=== PATIENT | male | born 1955 | race Caucasian/White ===

== ENCOUNTER 2023-06-18 10:23 | Inpatient (IN) | payer OTHER, MEDICARE ==
[2023-06-18] MEDS ORDERED: Sodium Chloride 0.9% 10 ML Syringe FLUSH PRN (10:32)
[2023-06-18 11:02] LABS: EOSINOPHILS ABSOLUTE AUTO 0.01 10^3/uL (0.10-0.30); EOSINOPHILS PERCENT AUTO 0.2 % (1.0-3.0); HEMATOCRIT 45.5 % (40.0-52.0); HEMOGLOBIN 14.9 g/dL (13.0-17.0); IMMATURE GRAN ABSOLUTE AUTO 0.02 10^3/uL (0.00-0.50); IMMATURE GRAN PERCENT AUTO 0.4 % (0.0-5.0); LYMPHOCYTES ABSOLUTE AUTO 0.29 10^3/uL (1.00-4.00); LYMPHOCYTES PERCENT AUTO 5.3 % (20.0-40.0); MEAN CORPUSCULAR HEMOGLOBIN 31.5 pg (27.0-31.0); MEAN CORPUSCULAR HGB CONC 32.7 g/dL (32.0-36.0); MEAN CORPUSCULAR VOLUME 96.2 fL (82.0-92.0); MEAN PLATELET VOLUME 8.8 fL (7.4-10.4); MONOCYTES ABSOLUTE AUTO 0.38 10^3/uL (0.10-0.80); MONOCYTES PERCENT AUTO 6.9 % (2.0-8.0); NEUTROPHILS PERCENT AUTO 87.2 % (50.0-70.0); PLATELET COUNT,PLT 141 10^3/uL (150-400); RED BLOOD CELL COUNT 4.73 10^6/uL (4.50-6.00); RED CELL DISTRIBUTION WIDTH 12.1 % (11.5-14.5)
[2023-06-18] MEDS: Sodium Chloride 0.9% 1,000 ML IV ONE ×2 (11:02→13:25)
[2023-06-18 11:18] LABS: ALBUMIN 3.39 g/dL (3.40-5.00); ANION GAP 18.7 mmol/L (5-15); BILIRUBIN TOTAL 0.6 mg/dL (0.2-1.0); CREATININE 0.99 mg/dL (0.51-1.17); EST CRCL DRUG DOSING (CG) 64.44 mL/min; POTASSIUM,K 3.7 mmol/L (3.5-5.1); PROTEIN TOTAL,TP 7.7 g/dL (6.4-8.2)
[2023-06-18 11:21] LABS: LACTIC ACID 3.2 mmol/L (0.4-2.0)
[2023-06-18] MEDS: Magnesium Sulfate/Water 2 GM in Premix Bag 1 BAG IV ONE ×2 (12:19→13:52)
[2023-06-18] MEDS: Calcium Carbonate 500 MG Tab.Chew PO ONE (12:46)
[2023-06-18 13:00] LABS: APPEARANCE,URINE SLIGHTLY CLOUDY (CLEAR); BILIRUBIN,URINE SMALL (NEGATIVE); COLOR,URINE DARK YELLOW (YELLOW); GLUCOSE,URINE 500 mg/dL (NEGATIVE); KETONES,URINE 15 mg/dL (NEGATIVE); LEUKOCYTE ESTERASE,URINE NEGATIVE (NEGATIVE); NITRITE,URINE NEGATIVE (NEGATIVE); PH,URINE 5.5 (5.0-9.0); PROTEIN,URINE 30 mg/dL (NEGATIVE); UROBILINOGEN,URINE 0.2 E.U./dL (0.2-1.0)
[2023-06-18 13:02] LABS: BACTERIA,URINE OCCASIONAL /HPF (NONE TO FEW); EPITHELIAL CELLS,URINE OCCASIONAL /LPF; GRANULAR CASTS,URINE RARE; WBC,URINE 0-5 /HPF (0-5)
[2023-06-18 13:03] LABS: OCCULT BLOOD,URINE TRACE-INTACT (NEGATIVE)
[2023-06-18] MEDS: cefTRIAXone 2 GM Vial IVPUSH ONE (14:54)
[2023-06-18] MEDS: Azithromycin 500 MG in Sodium Chloride 0.9% 250 ML IV ONE (15:00)
[2023-06-18] MEDS: Azithromycin 1,000 MG in Sodium Chloride 0.9% 500 ML IV ONE (15:25)
[2023-06-18] MEDS ORDERED: Glucagon,Human Recombinant 1 MG Vial IM PRN ×2 (17:41→18:04)
[2023-06-18] MEDS ORDERED: 50% Dextrose in Water 50 ML Syringe IVPUSH PRN ×2 (17:41→18:04)
[2023-06-18] MEDS ORDERED: Ondansetron 4 MG/2 ML SDV IV PRN (17:41)
[2023-06-18] MEDS ORDERED: Magnesium Hydroxide 400 MG/5 ML Susp 30 ML Cup PO PRN (17:53)
[2023-06-18] MEDS: Insulin Lispro 100 Unit/ML 3 ML KwikPen SUBCUT ONE ×2 (18:15→21:24)
[2023-06-18] MEDS: Insulin Lispro 100 Unit/ML 3 ML KwikPen SUBCUT SCH (18:16)
[2023-06-18] MEDS: Pantoprazole 40 MG Vial IVPUSH ONE (18:44)
[2023-06-18] MEDS: Sodium Chloride 0.9% 500 ML IV ONE ×3 (18:46→18:49)
[2023-06-18] MEDS: Sodium Chloride 0.9% 1,000 ML IV SCH (19:30)
[2023-06-18] MEDS: ClonazePAM 0.5 MG Tab PO SCH (20:28)
[2023-06-18] MEDS: Melatonin 3 MG Tab PO SCH (20:33)
[2023-06-18] MEDS: Tamsulosin 0.4 MG Cap.ER #OWN MED# PO SCH (20:34)
[2023-06-18] MEDS: OLANZAPINE 20 MG PO SCH (20:35)
[2023-06-18] MEDS: METOPROLOL TARTRATE 25 MG PO SCH (20:37)
[2023-06-18] MEDS: VALPROIC ACID 250 MG/5 ML PO SCH (20:39)
[2023-06-18] MEDS: LITHIUM CARBONATE 450 MG PO SCH (20:58)
[2023-06-18] MEDS ORDERED: Metoprolol Tartrate 25 MG Tab PO SCH (21:00)
[2023-06-18] MEDS: Menthol Lozenge PO PRN (21:53)
[2023-06-19] MEDS: OMEPRAZOLE 20 MG PO SCH (07:26)
[2023-06-19 07:56] LABS: HEMATOCRIT 44.3 % (40.0-52.0); HEMOGLOBIN 14.4 g/dL (13.0-17.0); MEAN CORPUSCULAR HEMOGLOBIN 31.6 pg (27.0-31.0); MEAN CORPUSCULAR HGB CONC 32.5 g/dL (32.0-36.0); MEAN CORPUSCULAR VOLUME 97.4 fL (82.0-92.0); MEAN PLATELET VOLUME 8.8 fL (7.4-10.4); PLATELET COUNT,PLT 105 10^3/uL (150-400); RED BLOOD CELL COUNT 4.55 10^6/uL (4.50-6.00); RED CELL DISTRIBUTION WIDTH 12.4 % (11.5-14.5); WHITE BLOOD CELL COUNT,WBC 5.21 10^3/uL (5.00-10.00)
[2023-06-19 08:11] LABS: ALBUMIN 2.93 g/dL (3.40-5.00); BILIRUBIN TOTAL 0.3 mg/dL (0.2-1.0); CALCIUM 7.9 mg/dL (8.7-10.3); CARBON DIOXIDE,CO2 23.4 mmol/L (21.0-32.0); CREATININE 0.81 mg/dL (0.51-1.17); EST CRCL DRUG DOSING (CG) 78.77 mL/min; PROTEIN TOTAL,TP 6.9 g/dL (6.4-8.2)
[2023-06-19] MEDS: Insulin Glargine,Hum.Rec.Anlog 100 UNIT/ML 3 ML Pen SUBCUT SCH (08:18)
[2023-06-19 08:19] LABS: POTASSIUM,K 2.4 mmol/L (3.5-5.1)
[2023-06-19] MEDS: VALPROIC ACID 250 MG/5 ML PO SCH (08:19)
[2023-06-19] MEDS: Loratadine 10 MG Tab PO SCH (08:19)
[2023-06-19] MEDS: Aspirin 81 MG Tab.EC PO SCH (08:19)
[2023-06-19] MEDS: LOSARTAN 50 MG PO SCH (08:20)
[2023-06-19] MEDS: OLANZAPINE 5 MG PO SCH (08:21)
[2023-06-19] MEDS ORDERED: Losartan 50 MG Tab PO SCH (09:00)
[2023-06-19] MEDS: Potassium Chloride 20 MEQ in Premix Bag 1 BAG IV ONE ×3 (10:33→17:32)
[2023-06-19] MEDS: Acetaminophen 325 MG Tab PO PRN (11:00)
[2023-06-19] MEDS: Potassium Chloride 20 MEQ Tab.ER PO ONE ×3 (11:55→23:40)
[2023-06-19] MEDS: Loperamide 2 MG Cap PO PRN (15:59)
[2023-06-19 16:26] LABS: ALBUMIN 2.73 g/dL (3.40-5.00); ANION GAP 17.1 mmol/L (5-15); CALCIUM 7.7 mg/dL (8.7-10.3); CARBON DIOXIDE,CO2 19.2 mmol/L (21.0-32.0); CREATININE 0.82 mg/dL (0.51-1.17); EST CRCL DRUG DOSING (CG) 77.8 mL/min; PHOSPHORUS 2.3 mg/dL (2.6-4.7)
[2023-06-19 16:36] LABS: POTASSIUM,K 2.3 mmol/L (3.5-5.1)
[2023-06-19] MEDS: Magnesium Oxide 500 MG Tab PO SCH (17:34)
[2023-06-19] MEDS: NS with KCl 40mEq 1,000 ML IV SCH (19:49)
[2023-06-19] MEDS: OLANZapine 5 MG Tab PO SCH (20:45)
[2023-06-19] MEDS: Tamsulosin 0.4 MG Cap.ER PO SCH (20:49)
[2023-06-19] MEDS: Metoprolol Tartrate 25 MG Tab PO SCH (20:49)
[2023-06-19] MEDS: Lidocaine 5% 700 MG Patch TOP SCH (20:52)
[2023-06-20] MEDS: Omeprazole 20 MG Cap.CR PO SCH (08:15)
[2023-06-20] MEDS: Enoxaparin 40 MG/0.4 ML Syringe SUBCUT SCH (08:15)
[2023-06-20] MEDS: OLANZapine 5 MG Tab PO SCH (08:15)
[2023-06-20] MEDS: LIDOCAINE PATCH TRDERM SCH (08:21)
[2023-06-20 08:56] LABS: ALBUMIN 2.72 g/dL (3.40-5.00); BILIRUBIN TOTAL 0.3 mg/dL (0.2-1.0); CARBON DIOXIDE,CO2 20.4 mmol/L (21.0-32.0); CREATININE 0.76 mg/dL (0.51-1.17); EST CRCL DRUG DOSING (CG) 83.95 mL/min; MAGNESIUM 2.1 mg/dL (1.8-2.4); POTASSIUM,K 3.4 mmol/L (3.5-5.1); PROTEIN TOTAL,TP 6.6 g/dL (6.4-8.2)
[2023-06-20 09:12] LABS: HEMATOCRIT 40.3 % (40.0-52.0); HEMOGLOBIN 13.3 g/dL (13.0-17.0); MEAN CORPUSCULAR HEMOGLOBIN 32.4 pg (27.0-31.0); MEAN CORPUSCULAR VOLUME 98.3 fL (82.0-92.0); MEAN PLATELET VOLUME 8.8 fL (7.4-10.4); PLATELET COUNT,PLT 112 10^3/uL (150-400); RED CELL DISTRIBUTION WIDTH 12.7 % (11.5-14.5); WHITE BLOOD CELL COUNT,WBC 5.76 10^3/uL (5.00-10.00)
[2023-06-20] MEDS: VALPROIC ACID 250 MG/5 ML PO ONE (10:15)
[2023-06-20] MEDS: Potassium Chloride 20 MEQ Tab.ER PO ONE (12:09)
[2023-06-20 14:52] LABS: CALCIUM 8.3 mg/dL (8.7-10.3)
[2023-06-20] MEDS ORDERED: VALPROIC ACID 250 MG/5 ML PO SCH (17:00)
== END 2023-06-20 13:55 | DRG 641 ==
LOC: KA.ED 10:23 → KA.MS 16:58 → OBSVTOIN 06-19 18:15
PROVIDERS: ADMIT Internal Medicine; ATTEND Internal Medicine
DX: E86.0 Dehydration (principal); F31.62 Bipolar disorder, current episode mixed, moderate; E87.6 Hypokalemia; R74.01 Elevation of levels of liver transaminase levels; R74.02 Elevation of levels of lactic acid dehydrogenase [LDH]; E11.65 Type 2 diabetes mellitus with hyperglycemia; N40.1 Benign prostatic hyperplasia with lower urinary tract symptoms; K59.09 Other constipation; K21.9 Gastro-esophageal reflux disease without esophagitis; F41.9 Anxiety disorder, unspecified; I10 Essential (primary) hypertension; E83.42 Hypomagnesemia; R33.8 Other retention of urine; R74.8 Abnormal levels of other serum enzymes; R79.89 Other specified abnormal findings of blood chemistry; R44.1 Visual hallucinations; Z88.5 Allergy status to narcotic agent; Z88.8 Allergy status to other drugs, medicaments and biological substances; Z79.4 Long term (current) use of insulin; Z79.82 Long term (current) use of aspirin; Z79.84 Long term (current) use of oral hypoglycemic drugs; Z79.899 Other long term (current) drug therapy
CPT/HCPCS: 36415 ×2; 51798; 71045; 80053 ×2; 80069; 81001; 82947 ×7; 83605 ×4; 83735; 85025; 85027; 87040 ×2; 87324; 87449; A9270 ×16; C9113; J0456; J0696; J1815; J3475 ×2; J3480 ×3; J7030 ×4; J7040; J7050; Q3014; 51702; 96361; 96365; 96366; 96367; 96375; 99223-GT; 99238-GT; 99284; 99285-25; J1650

== ENCOUNTER 2023-06-28 00:37 | Inpatient (IN) | payer OTHER, MEDICARE ==
[2023-06-28] MEDS ORDERED: Sodium Chloride 0.9% 10 ML Syringe FLUSH PRN (00:55)
[2023-06-28] MEDS: Sodium Chloride 0.9% 1,000 ML IV ONE (00:57)
[2023-06-28] MEDS: Sodium Chloride 0.9% 1,000 ML ONE (00:57)
[2023-06-28] MEDS: Insulin Regular, Human 100 Units/ML 10 ML Vial SUBCUT ONE (01:31)
[2023-06-28 01:37] LABS: BASOPHILS ABSOLUTE AUTO 0.02 10^3/uL (0.00-0.10); BASOPHILS PERCENT AUTO 0.3 % (0.0-1.0); EOSINOPHILS ABSOLUTE AUTO 0.23 10^3/uL (0.10-0.30); EOSINOPHILS PERCENT AUTO 3.3 % (1.0-3.0); HEMATOCRIT 34.9 % (40.0-52.0); HEMOGLOBIN 11.8 g/dL (13.0-17.0); IMMATURE GRAN ABSOLUTE AUTO 0.27 10^3/uL (0.00-0.50); IMMATURE GRAN PERCENT AUTO 3.9 % (0.0-5.0); LYMPHOCYTES ABSOLUTE AUTO 1.77 10^3/uL (1.00-4.00); LYMPHOCYTES PERCENT AUTO 25.5 % (20.0-40.0); MEAN CORPUSCULAR HEMOGLOBIN 32.6 pg (27.0-31.0); MEAN CORPUSCULAR HGB CONC 33.8 g/dL (32.0-36.0); MEAN CORPUSCULAR VOLUME 96.4 fL (82.0-92.0); MONOCYTES ABSOLUTE AUTO 0.75 10^3/uL (0.10-0.80); MONOCYTES PERCENT AUTO 10.8 % (2.0-8.0); NEUTROPHILS PERCENT AUTO 56.2 % (50.0-70.0); PLATELET COUNT,PLT 223 10^3/uL (150-400); RED BLOOD CELL COUNT 3.62 10^6/uL (4.50-6.00); RED CELL DISTRIBUTION WIDTH 12.9 % (11.5-14.5); WHITE BLOOD CELL COUNT,WBC 6.94 10^3/uL (5.00-10.00)
[2023-06-28 01:45] LABS: APPEARANCE,URINE CLEAR (CLEAR); BILIRUBIN,URINE NEGATIVE (NEGATIVE); COLOR,URINE YELLOW (YELLOW); GLUCOSE,URINE >=1000 mg/dL (NEGATIVE); KETONES,URINE NEGATIVE (NEGATIVE); LEUKOCYTE ESTERASE,URINE NEGATIVE (NEGATIVE); NITRITE,URINE NEGATIVE (NEGATIVE); OCCULT BLOOD,URINE NEGATIVE (NEGATIVE); PROTEIN,URINE NEGATIVE (NEGATIVE); UROBILINOGEN,URINE 0.2 E.U./dL (0.2-1.0)
[2023-06-28 01:51] LABS: ALBUMIN 2.71 g/dL (3.40-5.00); ANION GAP 14.1 mmol/L (5-15); BILIRUBIN TOTAL 0.5 mg/dL (0.2-1.0); CALCIUM 8.8 mg/dL (8.7-10.3); CARBON DIOXIDE,CO2 27.8 mmol/L (21.0-32.0); CREATININE 0.78 mg/dL (0.51-1.17); EST CRCL DRUG DOSING (CG) 112.24 mL/min; POTASSIUM,K 4.9 mmol/L (3.5-5.1); PROTEIN TOTAL,TP 6.8 g/dL (6.4-8.2)
[2023-06-28 01:51] LABS: BACTERIA,URINE RARE /HPF (NONE TO FEW); EPITHELIAL CELLS,URINE RARE /LPF; RBC,URINE 0-5 /HPF (0-5); WBC,URINE 0-5 /HPF (0-5)
[2023-06-28] MEDS ORDERED: Ondansetron 4 MG/2 ML SDV IV PRN (03:22)
[2023-06-28] MEDS ORDERED: Non-Formulary Medication 1 Each (Dextran 70/Hypromellose [Artificial Tears] 1 EACH Dropere OP PRN (03:33)
[2023-06-28] MEDS ORDERED: Magnesium Hydroxide 400 MG/5 ML Susp 30 ML Cup PO PRN (03:33)
[2023-06-28] MEDS: Sodium Chloride 0.9% 1,000 ML IV SCH (04:06)
[2023-06-28] MEDS: Insulin Regular in 0.9 % NACL 100 ML IV SCH (04:07)
[2023-06-28 07:00] LABS: HEMATOCRIT 34.3 % (40.0-52.0); HEMOGLOBIN 11.5 g/dL (13.0-17.0); MEAN CORPUSCULAR HEMOGLOBIN 31.8 pg (27.0-31.0); MEAN CORPUSCULAR HGB CONC 33.5 g/dL (32.0-36.0); MEAN CORPUSCULAR VOLUME 94.8 fL (82.0-92.0); MEAN PLATELET VOLUME 8.3 fL (7.4-10.4); PLATELET COUNT,PLT 175 10^3/uL (150-400); RED BLOOD CELL COUNT 3.62 10^6/uL (4.50-6.00); RED CELL DISTRIBUTION WIDTH 12.9 % (11.5-14.5); WHITE BLOOD CELL COUNT,WBC 6.14 10^3/uL (5.00-10.00)
[2023-06-28 07:16] LABS: CALCIUM 8.4 mg/dL (8.7-10.3); CARBON DIOXIDE,CO2 29.9 mmol/L (21.0-32.0); CREATININE 0.61 mg/dL (0.51-1.17); EST CRCL DRUG DOSING (CG) 104.59 mL/min; MAGNESIUM 1.5 mg/dL (1.8-2.4); POTASSIUM,K 3.9 mmol/L (3.5-5.1)
[2023-06-28] MEDS ORDERED: Omeprazole 20 MG Cap.CR PO SCH (07:30)
[2023-06-28] MEDS ORDERED: Glucagon,Human Recombinant 1 MG Vial IM PRN (07:36)
[2023-06-28] MEDS ORDERED: 50% Dextrose in Water 50 ML Syringe IVPUSH PRN (07:36)
[2023-06-28] MEDS: Insulin Lispro 100 Unit/ML 3 ML KwikPen SUBCUT SCH ×2 (08:02→21:16)
[2023-06-28] MEDS: Pantoprazole 40 MG Tab.CR PO SCH (08:12)
[2023-06-28] MEDS: Docusate Sodium 100 MG Cap PO SCH (08:12)
[2023-06-28] MEDS: Loratadine 10 MG Tab PO SCH (08:12)
[2023-06-28] MEDS: glipiZIDE 5 MG Tab PO SCH (08:12)
[2023-06-28] MEDS: Multivitamins with Minerals/Iron/Folic Acid/Lycopene Tab PO SCH (08:13)
[2023-06-28] MEDS: Magnesium Oxide 500 MG Tab PO SCH (08:13)
[2023-06-28] MEDS: Cholecalciferol (Vitamin D3) 25 MCG Tab PO SCH (08:13)
[2023-06-28] MEDS: Thiamine 100 MG Tab PO SCH (08:13)
[2023-06-28] MEDS: Metoprolol Tartrate 25 MG Tab PO SCH (08:14)
[2023-06-28] MEDS: Aspirin 81 MG Tab.EC PO SCH (08:15)
[2023-06-28] MEDS: Cefdinir 300 MG Cap PO SCH (08:15)
[2023-06-28] MEDS: Losartan 50 MG Tab PO SCH (08:15)
[2023-06-28] MEDS: Folic Acid 1 MG Tab PO SCH (08:15)
[2023-06-28] MEDS: Enoxaparin 40 MG/0.4 ML Syringe SUBCUT SCH (08:23)
[2023-06-28] MEDS ORDERED: Non-Formulary Medication 1 Each (Magnesium Oxide [Magnesium Oxide] 400 MG Tablet) PO SCH (09:00)
[2023-06-28] MEDS: Insulin Glargine,Hum.Rec.Anlog 100 UNIT/ML 3 ML Pen SUBCUT SCH (09:50)
[2023-06-28 10:16] LABS: APPEARANCE,URINE CLEAR (CLEAR); BILIRUBIN,URINE NEGATIVE (NEGATIVE); COLOR,URINE YELLOW (YELLOW); GLUCOSE,URINE 500 mg/dL (NEGATIVE); KETONES,URINE NEGATIVE (NEGATIVE); LEUKOCYTE ESTERASE,URINE NEGATIVE (NEGATIVE); NITRITE,URINE NEGATIVE (NEGATIVE); OCCULT BLOOD,URINE NEGATIVE (NEGATIVE); PROTEIN,URINE NEGATIVE (NEGATIVE); UROBILINOGEN,URINE 0.2 E.U./dL (0.2-1.0)
[2023-06-28] MEDS: Acetaminophen 325 MG Tab PO PRN (11:56)
[2023-06-28 12:03] LABS: HEMOGLOBIN A1C 8.8 % (4.3-5.7)
[2023-06-28 12:11] LABS: ANION GAP 14.9 mmol/L (5-15); CALCIUM 8.7 mg/dL (8.7-10.3); CREATININE 0.63 mg/dL (0.51-1.17); EST CRCL DRUG DOSING (CG) 101.27 mL/min; MAGNESIUM 1.5 mg/dL (1.8-2.4); POTASSIUM,K 4.9 mmol/L (3.5-5.1)
[2023-06-28] MEDS: Menthol Lozenge PO PRN (14:16)
[2023-06-28] MEDS: PEG 400/Hypromellose/Glycerin 15 ML Bottle EYEBOTH PRN (15:17)
[2023-06-28] MEDS: Calcium Carbonate 500 MG Tab.Chew PO PRN (19:50)
[2023-06-28] MEDS: Lidocaine 5% 700 MG Patch TRDERM SCH (20:25)
[2023-06-28] MEDS: Valproic Acid 250 MG/5 ML Soln 5 ML UD Cup PO SCH (20:27)
[2023-06-28] MEDS: Fluticasone NASAL Spray 16 GM Bottle NASBOTH SCH (20:30)
[2023-06-28] MEDS: OLANZapine 5 MG Tab PO SCH (20:32)
[2023-06-28] MEDS: Tamsulosin 0.4 MG Cap.ER PO SCH (20:32)
[2023-06-28] MEDS: Cyanocobalamin (Vitamin B12) 500 MCG Tab PO SCH (20:32)
[2023-06-28] MEDS: Melatonin 3 MG Tab PO SCH (20:33)
[2023-06-28] MEDS ORDERED: Insulin Lispro 100 Unit/ML 3 ML KwikPen SUBCUT SCH (21:15)
[2023-06-29] MEDS: Insulin Lispro 100 Unit/ML 3 ML KwikPen SUBCUT SCH (08:07)
[2023-06-29 10:49] LABS: BASOPHILS ABSOLUTE AUTO 0.02 10^3/uL (0.00-0.10); BASOPHILS PERCENT AUTO 0.4 % (0.0-1.0); EOSINOPHILS ABSOLUTE AUTO 0.21 10^3/uL (0.10-0.30); EOSINOPHILS PERCENT AUTO 3.7 % (1.0-3.0); HEMOGLOBIN 12.6 g/dL (13.0-17.0); IMMATURE GRAN ABSOLUTE AUTO 0.07 10^3/uL (0.00-0.50); IMMATURE GRAN PERCENT AUTO 1.2 % (0.0-5.0); LYMPHOCYTES ABSOLUTE AUTO 1.68 10^3/uL (1.00-4.00); LYMPHOCYTES PERCENT AUTO 29.5 % (20.0-40.0); MEAN CORPUSCULAR HEMOGLOBIN 32.1 pg (27.0-31.0); MEAN CORPUSCULAR HGB CONC 33.2 g/dL (32.0-36.0); MEAN CORPUSCULAR VOLUME 96.9 fL (82.0-92.0); MEAN PLATELET VOLUME 8.7 fL (7.4-10.4); MONOCYTES ABSOLUTE AUTO 0.48 10^3/uL (0.10-0.80); MONOCYTES PERCENT AUTO 8.4 % (2.0-8.0); NEUTROPHILS ABSOLUTE AUTO 3.23 10^3/uL (2.50-7.00); NEUTROPHILS PERCENT AUTO 56.8 % (50.0-70.0); PLATELET COUNT,PLT 186 10^3/uL (150-400); RED BLOOD CELL COUNT 3.92 10^6/uL (4.50-6.00); RED CELL DISTRIBUTION WIDTH 12.5 % (11.5-14.5); WHITE BLOOD CELL COUNT,WBC 5.69 10^3/uL (5.00-10.00)
[2023-06-29 11:04] LABS: ALBUMIN 2.62 g/dL (3.40-5.00); ANION GAP 14.6 mmol/L (5-15); BILIRUBIN TOTAL 0.5 mg/dL (0.2-1.0); CALCIUM 8.3 mg/dL (8.7-10.3); CARBON DIOXIDE,CO2 25.3 mmol/L (21.0-32.0); CREATININE 0.65 mg/dL (0.51-1.17); EST CRCL DRUG DOSING (CG) 98.15 mL/min; MAGNESIUM 1.5 mg/dL (1.8-2.4); POTASSIUM,K 4.9 mmol/L (3.5-5.1); PROTEIN TOTAL,TP 6.7 g/dL (6.4-8.2)
[2023-06-29] MEDS: Loratadine 10 MG Tab PO SCH (12:43)
[2023-06-29] MEDS: Insulin Glargine,Hum.Rec.Anlog 100 UNIT/ML 3 ML Pen SUBCUT SCH (20:12)
[2023-06-29] MEDS ORDERED: Insulin Glargine,Hum.Rec.Anlog 100 UNIT/ML 3 ML Pen SUBCUT SCH (21:00)
[2023-06-30] MEDS: Insulin Regular, Human 100 Units/ML 10 ML Vial SUBCUT ONE (13:06)
[2023-06-30] MEDS: Sodium Chloride 0.9% 500 ML IV ONE (13:08)
[2023-06-30] MEDS: Sodium Chloride 0.9% 10 ML SDV IV ONE (13:15)
== END 2023-06-30 14:07 | DRG 637 ==
LOC: KA.ED 00:37 → KA.MS 02:11
PROVIDERS: ADMIT Internal Medicine; ATTEND Family Medicine
DX: E11.10 Type 2 diabetes mellitus with ketoacidosis without coma (principal); J18.9 Pneumonia, unspecified organism; E11.65 Type 2 diabetes mellitus with hyperglycemia; E78.00 Pure hypercholesterolemia, unspecified; I10 Essential (primary) hypertension; K21.9 Gastro-esophageal reflux disease without esophagitis; E11.9 Type 2 diabetes mellitus without complications; E66.9 Obesity, unspecified; F41.9 Anxiety disorder, unspecified; F32.A Depression, unspecified; G89.29 Other chronic pain; K59.09 Other constipation; N40.0 Benign prostatic hyperplasia without lower urinary tract symptoms; M54.9 Dorsalgia, unspecified; Z88.5 Allergy status to narcotic agent; Z88.8 Allergy status to other drugs, medicaments and biological substances; Z79.82 Long term (current) use of aspirin; Z79.4 Long term (current) use of insulin; Z90.49 Acquired absence of other specified parts of digestive tract; Z90.89 Acquired absence of other organs; Z87.891 Personal history of nicotine dependence; Z79.84 Long term (current) use of oral hypoglycemic drugs; Z79.899 Other long term (current) drug therapy; Z68.22 Body mass index [BMI] 22.0-22.9, adult
CPT/HCPCS: 36415; 80053; 81001; 82947; 85025; 96360; 99285; J7030; 80048; 81003; 83036; 83735; 84100; 85027; 99223-GT; 99233-GT; 99239-GT; 99284; A9270-GY; J1650; J1815-GY; J7040; Q3014